=== PATIENT | male | born 1950 | race Caucasian/White ===

== ENCOUNTER 2016-05-14 08:01 | Day surgery (SDC) | payer BC ==
[~2016-05-14 08:01] MED LIST: Lactated Ringers 1,000 ML IV SCH
[2016-05-14] MEDS ORDERED: Propofol 200 MG/20 ML SDV IV ONE (09:45)
[2016-05-14] MEDS ORDERED: Lidocaine 2% 100 MG/5 ML Syringe IVPUSH ONE (09:45)
[2016-05-14] MEDS ORDERED: Midazolam 1 MG/ML 2 ML SDV IV ONE (09:45)
--- NOTE | 2016-05-14 10:13 | PCM.OPNOTE ---
- General Post-Op/Procedure Note Date of Surgery/Procedure: 05/14/16 Operative Procedure(s): c scope with bx Findings: transverse and sigmoid colon polyp Pre Op Diagnosis: screening Post-Op Diagnosis: transverse and sigmoid colon polyp Anesthesia Technique: MAC Primary Surgeon: Aydin Augustine (t) Anesthesia Provider: Cristina Zacarias Pathology: transverse and sigmoid colon polyp Complications: None Condition: Good Free Text/Narrative:: see dictation
[2016-05-14 11:50] VITALS: BP 123/84
--- NOTE | 2016-05-14 16:19 | OR ---
DATE OF OPERATION: 05/14/2016 SURGEON: Aydin Augustine MD PROCEDURE PERFORMED: Colonoscopy with cold forceps biopsy. PREOPERATIVE DIAGNOSIS: Screening for colon cancer. POSTOPERATIVE DIAGNOSIS: Transverse colon polyp and sigmoid colon polyp. INDICATIONS FOR PROCEDURE: This 65-year-old white male presents for screening colonoscopy. He was offered and accepted same. DESCRIPTION OF OPERATION: After an excellent IV sedation was administered, digital rectal exam was performed. No marked abnormality was noted. The flexible colonoscope was inserted and advanced without difficulty to the cecum. The prep was excellent. The following findings were noted. Ascending colon, unremarkable. Transverse colon, a small polypoid lesion, biopsied with cold biopsy forceps and sent for permanent. Descending colon, unremarkable. Sigmoid, a small polyp biopsied with cold biopsy forceps and sent for permanent. It should also be noted that the patient had some diverticulosis involving the descending and sigmoid colons as well. Rectum and anus were unremarkable. Colon was deflated as the scope was removed. The patient tolerated the procedure well and was taken to recovery room in good condition. /[id number] /MODL
== END 2016-05-14 11:33 | disposition home or self-care (01) ==
LOC: FB.SDS 08:01
PROVIDERS: ATTEND Surgery
DX: Z12.11 Encounter for screening for malignant neoplasm of colon (principal); D12.3 Benign neoplasm of transverse colon; K63.5 Polyp of colon; K57.30 Diverticulosis of large intestine without perforation or abscess without bleeding; Z88.0 Allergy status to penicillin; Z79.899 Other long term (current) drug therapy; Z98.890 Other specified postprocedural states; Z87.891 Personal history of nicotine dependence
CPT/HCPCS: 45380; 88305; J2250; J2704; J7120

== ENCOUNTER 2022-02-28 08:28 | Day surgery (SDC) | payer MEDICARE, BC ==
[2022-02-28] MEDS ORDERED: Propofol 200 MG/20 ML SDV IV ONE (08:29)
[2022-02-28] MEDS ORDERED: Sodium Chloride 0.9% 10 ML Syringe FLUSH PRN (08:30)
[2022-02-28] MEDS ORDERED: Lactated Ringers 1,000 ML IV SCH (08:30)
[2022-02-28 12:21] VITALS: BP 123/93; PULSE 78
== END 2022-02-28 12:15 | disposition home or self-care (01) ==
LOC: FB.SDS 08:28
PROVIDERS: ATTEND Surgery
DX: Z12.11 Encounter for screening for malignant neoplasm of colon (principal); K63.5 Polyp of colon; K57.30 Diverticulosis of large intestine without perforation or abscess without bleeding; K40.20 Bilateral inguinal hernia, without obstruction or gangrene, not specified as recurrent; Z86.010 Personal history of colon polyps; Z79.899 Other long term (current) drug therapy; Z88.0 Allergy status to penicillin; Z98.890 Other specified postprocedural states; Z87.891 Personal history of nicotine dependence
CPT/HCPCS: 00812-QZ; 88304; J2704; J7120